=== PATIENT | male | born 1940 | race Caucasian/White ===

== ENCOUNTER 2017-02-12 23:48 | Emergency (ER) | payer MEDICARE ==
[~2017-02-12] VITALS: Ht 180.3 cm; Wt 95.3 kg
--- NOTE | ~2017-02-12 | CT71 ---
[facility] A Service of [facility] RADIOLOGY TEXT RESULTS PATIENT: POLLY WARE LOCATION: [facility] : 42 UNIT #: [id number] AGE: [address]: Tomas Hathaway MD SEX: M ORDER DR: [id number] [facility] [address] [place], [place] [address] [id number] MR#: [id number] Acc #: [id number] NAME: POLLY WARE : 1940 SEX: M STUDY DATE/TIME: 02/13/2017 01:09 UNIT: [facility] ROOM: STUDY DESCRIPTION: CT Head Wo Contrast Attending Physician: Tomas Hathaway M.D. Ordering Physician: Tomas Hathaway M.D. Primary Care Physician: Stanislav Sanz M.D. MEDICAL IMAGING REPORT This report is preliminary unless electronic signature is present EXAM Head CT, 02/13 at 0109 hours. INDICATIONS Headache, hypertension, cough and dizziness for 1 day. COMPARISON None. TECHNIQUE This CT exam was performed with one or more of the following radiation dose reduction techniques: automatic exposure control, adjustment of mA and/or kV according to patient size, and iterative reconstruction. FINDINGS Axial images were obtained from the base to the vertex without contrast. There is generalized atrophy. Ventricular size and configuration are within normal limits. No acute infarct or hemorrhage is seen. There are no masses. There is no skull fracture. IMPRESSION Generalized atrophy, otherwise, negative head CT. Dictated by... Eliu Dolan Jr., M.D. THIS IS AN ELECTRONICALLY VERIFIED REPORT Eliu Dolan Jr., M.D. at 02/13/2017 9:16 PM DAYA/glenn TD: 02/13/2017 14:52 JOB #: [id number] [facility] A Service of [facility] RADIOLOGY TEXT RESULTS PATIENT: POLLY WARE LOCATION: [facility] : 44 UNIT #: [id number] AGE: [address]: Tomas Hathaway MD SEX: M ORDER DR: MEDICAL IMAGING REPORT Page 1 of 1 COPY
--- NOTE | ~2017-02-12 | EKG ---
PATIENT: POLLY WARE UNIT #: [id number] Ventricular Rate: 95 BPM Atrial Rate: 95 BPM P-R Interval: 194 ms QRS Duration: 86 ms Q-T Interval: 390 ms QTC Calculation(Bezet): 490 ms P Secretary: 70 degrees Calculated R Secretary: 79 degrees Calculated T Secretary: 79 degrees Diagnosis Line: Normal sinus rhythm Diagnosis Line: Septal infarct , age undetermined Diagnosis Line: Abnormal ECG Diagnosis Line: No previous ECGs available Diagnosis Line: Confirmed by GORDO DAMIAN MD ([id number]) on Diagnosis Line: 02/13/2017 8:43:17 AM INTERPRETING MD: RICKIE WAYNE
[~2017-02-12 23:48] MED LIST: AMOXICILLIN875 MG PO; KEFLEX PO; LORTAB 7.5-5001 TAB; LOTENSIN20 MG PO; NORVASC10 MG PO; VITAL-D RX TABL1 TAB PO
[2017-02-13 00:50] LABS: URINE SOURCE CLEAN CATCH
[2017-02-13 00:54] LABS: BASOPHIL# 0.1 X10e3 (0-0.3); BASOPHIL% 0.8 % (0-2.5); EOSINOPHIL# 0.2 X10e3 (0-0.7); EOSINOPHIL% 1.3 % (0.0-7.0); LYMPHOCYTE% 14.4 % (17.0-45.0); MEAN CELL VOLUME 86.3 FL (83-96); MEAN CORPUSCULAR HEMOGLOBIN 28.8 PG (28-34); MEAN CORPUSCULAR HGB CONC 33.4 g/dL (30-36); MEAN PLATELET VOLUME 9.7 FL (6.5-11.5); MONOCYTE% 7.4 % (3.0-12.0); NEUTROPHIL# 10.6 X10e3 (1.5-7.1); NEUTROPHIL% 76.1 % (40-75); PLATELET COUNT 261 X10e3 (140-420); RED BLOOD COUNT 5.22 X10e (3.90-5.60); RED CELL DISTRIBUTION WIDTH 13.1 % (11.0-15.5)
[2017-02-13 01:02] LABS: DIFF IND NO
[2017-02-13 01:06] LABS: URINE APPEARANCE CLEAR; URINE BILIRUBIN NEG (NEG); URINE BLOOD NEG (NEG); URINE COLOR YELLOW; URINE GLUCOSE NEG (NEG); URINE KETONE NEG (NEG); URINE LEUKOCYTE ESTERASE NEG (NEG); URINE NITRATE NEG (NEG); URINE PH 5.5 (5-8); URINE PROTEIN 1+ (NEG); URINE SPECIFIC GRAVITY 1.009 (1.003-1.035); URINE UROBILINOGEN 0.2 MG/DL (NEG)
[2017-02-13 01:09] LABS: URBCS1 AUWI 0-2 /[HPF] (0-2); URINE BACTERIA AUWI NEG (NEGATIVE); URINE SQUAMOUS EPITHELIAL CELL NONE SEEN /[HPF]; UWBCS1 AUWI 0-2 (0-5)
[2017-02-13 01:11] LABS: CULTURE INDICATED? NO
[2017-02-13 01:19] LABS: ALBUMIN SERUM 4.6 g/dL (3.5-5.0); BILIRUBIN, DIRECT 0.1 mg/dL (0.0-0.2); BILIRUBIN,INDIRECT 0.4 mg/dL (0.0-0.9); BILIRUBIN,TOTAL 0.5 mg/dL (0.2-2.0); BUN/CREATININE RATIO 16.66; CREATININE SERUM 1.2 mg/dL (0.6-1.4); GLOM FILT RATE Estimated 59.2 mL/min (>60); POTASSIUM 3.6 mmol/L (3.5-5.1); PROTEIN TOTAL SERUM 8.2 g/dL (6.0-8.3)
[2017-02-13 02:27] LABS: POC - CKMB 2.3 ng/mL (0.0-7.9); POC - TROPONIN <0.05 ng/mL (<=0.05)
== END 2017-02-13 03:30 | disposition home or self-care (01) ==
LOC: CED 23:48
PROVIDERS: Emergency Medicine
DX: I10 Essential (primary) hypertension (principal); Z79.899 Other long term (current) drug therapy
CPT/HCPCS: 36415; 70450; 80048; 80076; 81003; 82553; 84484; 85025; 93005; 96360; 99284